=== PATIENT | female | born 1990 | race African-American/Black ===

== ENCOUNTER 2020-07-04 13:30 | Emergency (ER) | payer OTHER ==
[~2020-07-04] VITALS: Ht 167.6 cm; Wt 57.0 kg
[2020-07-04 14:30] LABS: BASOPHILS % (AUTO) 1 % (0-1); EOSINOPHILS % (AUTO) 2 % (1-7); LYMPHOCYTES % (AUTO) 32 % (22-44); MEAN CORPUSCULAR HGB CONC 32.3 g/dL (32.4-35.8); MEAN PLATELET VOLUME 9.3 fL (7.4-10.4); MONOCYTES % (AUTO) 8 % (2-9); NEUTROPHILS % (AUTO) 57 % (42-75); PLATELET COUNT 200 x10^3/uL (130-400); RED BLOOD COUNT 4.17 x10^6/uL (3.82-5.3); RED CELL DISTRIBUTION WIDTH 17.8 % (9.6-15.2)
[2020-07-04 14:31] LABS: MD NO
[2020-07-04 14:38] LABS: ALBUMIN 3.8 g/dL (3.4-5.0); ANION GAP 5 mmol/L (5-15); CALCIUM 8.3 mg/dL (8.5-10.1); CHLORIDE 108 mmol/L (98-107)
[2020-07-04 14:44] LABS: ALANINE AMINOTRANSFERASE 14 U/L (12-78); ALKALINE PHOSPHATASE 44 U/L (45-117); BILIRUBIN,TOTAL 0.5 mg/dL (0.2-1.0); CREATININE 0.72 mg/dL (0.55-1.02); TOTAL PROTEIN 7.1 g/dL (6.4-8.2)
--- NOTE | 2020-07-04 15:33 | NUR ---
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
[2020-07-04 17:06] LABS: MICROSCOPIC AUTO
[2020-07-04] MEDS ORDERED: FOSFOMYCIN 3 GM PACKET PO ONE (17:30)
[2020-07-04] MEDS ORDERED: BISACODYL 5 MG EC TABLET PO PRN (17:30)
--- NOTE | 2020-07-04 17:32 | NUR ---
Social work at bedside.
[2020-07-04] MEDS ORDERED: BISACODYL 10 MG SUPP ONE (17:39)
[2020-07-04] MEDS ORDERED: FOSFOMYCIN 3 GM PACKET ONE (17:39)
[2020-07-04] MEDS ORDERED: BISACODYL 5 MG EC TABLET ONE ×2 (17:41→17:47)
[2020-07-04 17:50] VITALS: BP 154/110
== END 2020-07-04 18:27 | disposition home or self-care (01) ==
LOC: EDBD 13:30 → ED 18:20
DX: K59.00 Constipation, unspecified (principal); R10.9 Unspecified abdominal pain; F39 Unspecified mood [affective] disorder; N92.6 Irregular menstruation, unspecified; I10 Essential (primary) hypertension
CPT/HCPCS: 36415; 74021; 80053; 81001; 83690; 84703; 85025; 87077; 87086; 87186; 99284